=== PATIENT | male | born 1970 | race Caucasian/White ===

== ENCOUNTER → 2025-01-25 | Day surgery (SDC) | payer BC, OTHER ==
[2025-01-21 10:55] LABS: BASOPHILS % 0.4 % (0.0-1.0); EOSINOPHILS % 1.7 % (0.0-6.0); LYMPHOCYTES % 21.4 % (18.0-39.1); MONOCYTES % 9.0 % (4.4-11.3); NEUTROPHILS % 67.2 % (38.7-80.0); RED CELL DISTRIBUTION WIDTH 12.7 % (11.7-14.4)
[2025-01-21 11:26] LABS: EST GLOMERULAR FILTRATION RATE 95.0 ML/MIN (>=60)
[~2025-01-25] MED LIST: ACETAMINOPHEN 1000 MG/100 ML 100 ML IV ONE; FAMOTIDINE 20 MG/2 ML VIAL IV ONE; FENTANYL CITRATE/PF 100MCG/2 ML INJ ONE; GLIPIZIDE ER10 MG; LACTATED RINGER'S 1,000 ML ONE; LIDOCAINE HCL 2% LOCAL INJ 5 ML SDV VIAL INJ ONE; LISINOPRIL10 MG PO; METFORMIN HCL500 MG PO; MIDAZOLAM HCL 2 MG/2 ML VIAL ONE; ONDANSETRON HCL INJ 2MG/ML 2ML 2 MG/ML VIAL ONE; PROPOFOL IV EMULSION 10 MG/ML 20 ML VIAL ONE; ROCURONIUM BROMIDE 1 ML IV ONE; SEVOFLURANE INHAL SOLN 250 ML PEN BTL ONE; SUCCINYLCHOLINE CHLORIDE 20 MG/ML 10ML VIAL ONE; SUGAMMADEX SODIUM 200 MG/2 ML VIAL IV ONE
[2025-01-25] MEDS: HYDROMORPHONE 1MG/1ML INJ ONE (11:42)
[2025-01-25] MEDS: HYDROCODONE/APAP 7.5MG-325MG 1 EA TAB ONE (12:10)
[2025-01-25 12:45] VITALS: BP 130/89; PULSE 88; RESP 17; O2SAT 95
== END | disposition home or self-care (01) ==
LOC: OR 07:51
PROVIDERS: ATTEND Surgery
DX: K42.0 Umbilical hernia with obstruction, without gangrene (principal); I10 Essential (primary) hypertension; E11.9 Type 2 diabetes mellitus without complications; Z79.84 Long term (current) use of oral hypoglycemic drugs; E66.01 Morbid (severe) obesity due to excess calories; Z01.810 Encounter for preprocedural cardiovascular examination; Z01.812 Encounter for preprocedural laboratory examination; Z79.899 Other long term (current) drug therapy
CPT/HCPCS: 36415 ×2; 49594; 80048; 82948; 85025; 93005; C1781; J0131; J0330; J1171; J1308; J2003; J2405; J2704; J3010; J7121; J2250